=== PATIENT | female | born 1950 | race Caucasian/White ===

== ENCOUNTER → 2017-10-11 | Outpatient (CLI) | payer MEDICARE, BC ==
--- NOTE | 2017-10-11 11:50 | REPMRS ---
Patient History The patient states she has not had a clinical breast exam in over a year. Patient is postmenopausal and had first child at age 30. Family history of ovarian cancer in paternal aunt at age 50 or over. Digital Woman Screen Mammo: October 11, 2017 - Exam #: [id number] Bilateral CC and MLO view(s) were taken. Technologist: Pamela Lee, Technologist Prior study comparison: October 21, 2015, digital woman screen mammo performed at [facility]. February 04, 2014, digital woman screen mammo performed at [facility]. FINDINGS: There are scattered fibroglandular densities. There has been no change in the appearance of the mammogram from the prior studies. There is a moderate amount of residual fibroglandular tissue of moderate density which is fairly symmetric. There is no interval development of dominant mass, architectural distortion, or clustered microcalcification suggestive of malignancy. No significant changes when compared with prior studies. ASSESSMENT: BI-RADS/ACR category 2 mammogram. Benign finding(s). Recommendation Routine screening mammogram in 1 year (for women over age 40). This mammogram was interpreted with the aid of an FDA-approved computer-aided dectection system. A. Negative x-ray reports should not delay biopsy if a dominant or clinically suspicious mass is present. B. Four to eight percent of cancers are not identified by mammography. C. Adenosis and dense breast may obscure an underlying neoplasm. Electronically Signed By: Pepe Raya MD 10/11/17 2235
--- NOTE | 2017-10-12 10:58 | DEXA ---
AP SPINE L1 - L4 1.117 -0.6 1.0 LT FEMUR TOTAL 0.866 -1.1 0.2 RT FEMUR TOTAL 0.881 -1.0 0.4 TOTAL BODY TOTAL OTHER COMMENTS: Normal bone densitometry of the spine. There is low bone density of the left hip. There is low bone density of the right hip. There is degenerative change in the spine which may artificially elevate the BMD. The increased density of the spine does represent a significant change since . The decreased density of the left hip does not represent significant change since 10/21/2015. The decreased density of the right hip does represent a significant change. The density of the spine is increased 4.4% since the initial exam on 09/13/2005. The spine density has increased 3.7% since the most recent exam on 10/21/2015. The density of the left hip has increased 0.5% since the initial exam on 2004. The density of the left hip has decreased 1.1% since the most recent exam on . The density of the right hip has increased 0.7% since the initial exam on 2004. The density of the right hip has decreased 1.5% since the most recent exam on . FOLLOW-UP: Recommendation for the next bone density exam: 2 years. BYRON
== END ==
LOC: M WHC 10:09
PROVIDERS: ATTEND Internal Medicine
DX: Z12.31 Encounter for screening mammogram for malignant neoplasm of breast (principal); Z13.820 Encounter for screening for osteoporosis; Z78.0 Asymptomatic menopausal state; M85.9 Disorder of bone density and structure, unspecified
CPT/HCPCS: 77080; G0202

== ENCOUNTER → 2019-12-25 | Outpatient (CLI) | payer MEDICARE, BC ==
--- NOTE | 2019-12-25 13:36 | REPMRS ---
Patient History The patient states she has not had a clinical breast exam in over a year. Family history of ovarian cancer at age 50 or over in paternal aunt. Digital Woman Screen Mammo: December 25, 2019 - Exam #: [id number] Bilateral CC and MLO view(s) were taken. Technologist: Antoinette Barone, Technologist Prior study comparison: October 11, 2017, digital woman screen mammo performed at [facility]. October 21, 2015, digital woman screen mammo performed at [facility]. February 04, 2014, digital woman screen mammo performed at [facility]. FINDINGS: There are scattered fibroglandular densities. There is a moderate amount of residual fibroglandular tissue which is fairly symmetric. There is no interval development of dominant mass, architectural distortion, or grouped microcalcification typical of malignancy. There has been no change in the appearance of the mammogram from the prior studies. 3-D tomosynthesis shows no additional findings. Assessment: BI-RADS/ACR category 1 mammogram. Negative Mammogram. Recommendation Routine screening mammogram of both breasts in 1 year (for women over age 40). This patient's Lifetime Breast Cancer RIsk is estimated at 4.6 %. This mammogram was interpreted with the aid of an FDA-approved computer-aided dectection system. Electronically Signed By: Sathya Proctor MD 12/25/19 [id number]
== END ==
LOC: M WHC 10:47
PROVIDERS: ATTEND Internal Medicine
DX: Z12.31 Encounter for screening mammogram for malignant neoplasm of breast (principal)

== ENCOUNTER → 2021-08-06 | Outpatient (CLI) | payer MEDICARE, BC ==
--- NOTE | 2021-08-06 11:48 | REPMRS ---
Patient History The patient states she has not had a clinical breast exam in over a year. Family history of ovarian cancer at age 50 or over in paternal aunt. Patient states no breast complaints today. Patient has signed MRS History Sheet. Digital Woman Screen Mammo: August 06, 2021 - Exam #: [id number] Bilateral CC and MLO view(s) were taken. Technologist: Fadumo Mitchell, Technologist Prior study comparison: December 25, 2019, bilateral digital woman screen mammo performed at [facility]. October 11, 2017, digital woman screen mammo performed at [facility]. FINDINGS: There are scattered fibroglandular densities. Screening. Digital screening (2D) mammography was performed bilaterally in the CC and MLO projections. Additionally, breast tomosynthesis (3D mammography) was performed bilaterally in the CC and MLO projections. Todays exam was compared to the prior exam/exams. By history, the patient has no complaints of a palpable breast abnormality or other significant breast complaints. The breasts are unchanged in size and shape. There are no dre-soft tissue densities or spiculated masses. There is no internal architectural distortion. Once again, stable benign appearing calcifications are seen.There are no suspicious dre-calcific clusters. Skin thickening or nipple retraction is not present. IMPRESSION: BI-RADS Category 2- Benign Findings. There is no evidence of malignant alteration of the breasts. Followup examination recommended in one year. The Volpara volumetric breast density category is B, there are scattered areas of fibroglandular densities. This mammogram was read with the assistance of [employer],an FDA approved computer aided detection system for mammography. The lifetime Tyrer-Cuzick score is 4 % Negative x-ray reports should not delay surgical consultation if a dominant or clinically suspicious mass is present. Not all breast cancers can be identified by mammography. Therefore, we recommend that you continue to perform regular breast self-examination and physical examination and then promptly contact your physician of any concerns or changes. Adenosis and dense breasts may obscure an underlying neoplasm. Assessment: BI-RADS/ACR category 2 mammogram. Benign Findings. Recommendation Routine screening mammogram of both breasts in 1 year. Electronically Signed By: Marquis Oneil DO 08/06/21 0700
== END ==
LOC: M WHC 10:53
PROVIDERS: ATTEND Internal Medicine
DX: Z12.31 Encounter for screening mammogram for malignant neoplasm of breast (principal)

== ENCOUNTER → 2024-02-24 | Outpatient (CLI) | payer MEDICARE, BC | LOC: M SOG 09:09 | PROVIDERS: ATTEND Orthopaedic Surgery | DX: M25.561 Pain in right knee (principal) ==

== ENCOUNTER → 2024-06-06 | Outpatient (CLI) | payer MEDICARE, BC | LOC: M WHC 10:49 | PROVIDERS: ATTEND Student in an Organized Health Care Education/Training Program | DX: Z12.31 Encounter for screening mammogram for malignant neoplasm of breast (principal) ==